=== PATIENT | female | born 1990 | race Caucasian/White ===

== ENCOUNTER 2017-10-17 12:00 | Emergency (ER) | payer MEDICAID, OTHER ==
[~2017-10-17] VITALS: Ht 157.5 cm; Wt 75.0 kg
[~2017-10-17 12:00] MED LIST: ALBU8.5H4 IH; ALBU8HFA IH; ALBU8HFA PO; AMOXICILLIN; ARIP5TAB4 PO; AZIT-57 PO; AZIT250T PO; BCP; GUAI473S11 PO; HYDR1TAB PO; IBUP-1984 PO; KETOCONAZOLE; METH-360 PO; NORG1TAB56 PO; ONDA4TAB6 PO; ONDA8TAB9 PO; PSEU-225 PO; PSEU120T84 PO
[2017-10-17] MEDS ORDERED: ibuprofen tablet 400 MG TABLET PO ONE (12:30)
[2017-10-17] MEDS ORDERED: HYDR-565 PO (12:32)
[2017-10-17] MEDS ORDERED: IBUP-1984 PO (12:32)
[2017-10-17 12:44] VITALS: BP 122/78
== END 2017-10-17 12:46 | disposition home or self-care (01) ==
LOC: ER 12:02
DX: S46.912A Strain of unspecified muscle, fascia and tendon at shoulder and upper arm level, left arm, initial encounter (principal); J45.909 Unspecified asthma, uncomplicated; F17.200 Nicotine dependence, unspecified, uncomplicated; F12.90 Cannabis use, unspecified, uncomplicated; Z91.040 Latex allergy status; Z79.899 Other long term (current) drug therapy; X58.XXXA Exposure to other specified factors, initial encounter; Y93.89 Activity, other specified; Y92.89 Other specified places as the place of occurrence of the external cause; Y99.8 Other external cause status
CPT/HCPCS: 99283; A4565

== ENCOUNTER 2017-12-05 19:07 | Emergency (ER) | payer MEDICAID ==
[~2017-12-05] VITALS: Ht 160 cm; Wt 80.0 kg
[~2017-12-05 19:07] MED LIST changes: -AZIT-57 PO; +AZIT250T83 PO
[2017-12-05] MEDS ORDERED: ALBU6.7H INH (19:43)
[2017-12-05] MEDS ORDERED: METH4TAB3 PO (19:43)
[2017-12-05] MEDS ORDERED: ipratropium/albuterol 3ml nebule NEB ONE (19:45)
[2017-12-05] MEDS ORDERED: predniSONE 20 mg tablet PO ONE (19:45)
[2017-12-05 20:06] VITALS: BP 124/61
== END 2017-12-05 20:08 | disposition home or self-care (01) ==
LOC: ER 19:07
DX: J45.901 Unspecified asthma with (acute) exacerbation (principal); J06.9 Acute upper respiratory infection, unspecified; J32.1 Chronic frontal sinusitis; F12.10 Cannabis abuse, uncomplicated; Z91.040 Latex allergy status
CPT/HCPCS: 94640; 94760; 99283; J7512

== ENCOUNTER 2018-07-07 16:45 | Emergency (ER) | payer MEDICAID ==
[~2018-07-07 16:45] MED LIST changes: +ALBU6.7H INH; +METH4TAB3 PO
== END 2018-07-07 18:32 | disposition left against medical advice (07) ==
LOC: ER 16:45
DX: J02.0 Streptococcal pharyngitis (principal); Z53.21 Procedure and treatment not carried out due to patient leaving prior to being seen by health care provider; Z91.040 Latex allergy status; Z79.899 Other long term (current) drug therapy

== ENCOUNTER 2021-12-17 00:28 | Emergency (ER) | payer MEDICAID ==
[~2021-12-17] VITALS: Ht 160 cm; Wt 66.2 kg
[~2021-12-17 00:28] MED LIST changes: -ALBU6.7H INH; +ALBU6.7H9 INH; +ARIP5TAB14 PO; -ARIP5TAB4 PO; -NORG1TAB56 PO; +NORG1TAB90 PO
[2021-12-17 01:01] VITALS: BP 136/86
== END 2021-12-17 02:22 | disposition left against medical advice (07) ==
LOC: ER 00:28
DX: M79.671 Pain in right foot (principal); Z53.21 Procedure and treatment not carried out due to patient leaving prior to being seen by health care provider; W19.XXXA Unspecified fall, initial encounter; Y93.89 Activity, other specified; Y92.89 Other specified places as the place of occurrence of the external cause; Y99.8 Other external cause status

== ENCOUNTER 2022-04-18 23:35 | Emergency (ER) | payer MEDICAID ==
[~2022-04-18 23:35] MED LIST changes: +ALBU6.7H14 INH; -ALBU6.7H9 INH
== END 2022-04-19 00:39 | disposition left against medical advice (07) ==
LOC: ER 23:36
DX: N23 Unspecified renal colic (principal); Z53.21 Procedure and treatment not carried out due to patient leaving prior to being seen by health care provider

== ENCOUNTER 2022-09-29 22:21 | Emergency (ER) | payer MEDICAID ==
[~2022-09-29] VITALS: Ht 160 cm; Wt 69.2 kg
--- NOTE | 2022-09-30 00:59 | NUR ---
pt states last used meth 5 hours ago. pt appears drowsy and falling asleep during assessment. md brian notified.
--- NOTE | 2022-09-30 01:01 | NUR ---
pt states unable to give urine sample at this time. aware.
[2022-09-30] MEDS ORDERED: POLY119P2 PO (01:30)
[2022-09-30] MEDS ORDERED: magnesium hydroxide 30ml (MOM) UD suspension PO ONE (01:30)
[2022-09-30] MEDS ORDERED: bisacodyl 5mg tablet.DR PO ONE (01:30)
[2022-09-30] MEDS ORDERED: BISA-78 PO (01:30)
[2022-09-30 01:48] VITALS: BP 152/93
== END 2022-09-30 01:49 | disposition home or self-care (01) ==
LOC: ER 22:22
DX: K59.00 Constipation, unspecified (principal); J45.909 Unspecified asthma, uncomplicated; F31.9 Bipolar disorder, unspecified; F12.90 Cannabis use, unspecified, uncomplicated; Z91.040 Latex allergy status
CPT/HCPCS: 74018; 99283

== ENCOUNTER 2023-03-20 18:13 | Emergency (ER) | payer MEDICAID ==
[~2023-03-20 18:13] MED LIST changes: +BISA-78 PO; +POLY119P2 PO
== END 2023-03-20 18:24 | disposition left against medical advice (07) ==
LOC: ER 18:14
DX: R51.9 Headache, unspecified (principal); Z53.21 Procedure and treatment not carried out due to patient leaving prior to being seen by health care provider
CPT/HCPCS: 99281; 99283; 99284

== ENCOUNTER 2023-03-31 02:27 | Emergency (ER) | payer MEDICAID ==
[~2023-03-31] VITALS: Ht 160 cm; Wt 67.8 kg
[2023-03-31 02:31] VITALS: BP 151/92; PULSE 93; RESP 18; TEMP 98.2; O2SAT 100
== END 2023-03-31 07:03 | disposition left against medical advice (07) ==
LOC: ER 02:28
DX: R51.9 Headache, unspecified (principal); Z53.21 Procedure and treatment not carried out due to patient leaving prior to being seen by health care provider
CPT/HCPCS: 99281

== ENCOUNTER 2023-04-02 23:09 | Emergency (ER) | payer MEDICAID ==
[~2023-04-02] VITALS: Ht 160 cm; Wt 66.2 kg
[2023-04-02 23:32] VITALS: TEMP 97.9
[2023-04-03 04:10] VITALS: BP 125/66; PULSE 79; RESP 16; O2SAT 100
== END 2023-04-03 04:35 | disposition home or self-care (01) ==
LOC: ER 23:10
DX: S06.0XAA Concussion with loss of consciousness status unknown, initial encounter (principal); F12.90 Cannabis use, unspecified, uncomplicated; S09.8XXA Other specified injuries of head, initial encounter; J45.909 Unspecified asthma, uncomplicated; Z87.81 Personal history of (healed) traumatic fracture; Z79.899 Other long term (current) drug therapy; Z91.040 Latex allergy status; W22.8XXA Striking against or struck by other objects, initial encounter; Y93.89 Activity, other specified; Y92.89 Other specified places as the place of occurrence of the external cause; Y99.8 Other external cause status
CPT/HCPCS: 70450; 99284